=== PATIENT | female | born 1995 | race Caucasian/White ===

== ENCOUNTER 2017-08-02 14:03 | Emergency (ER) | payer OTHER ==
[2017-08-02 14:36] LABS: #Basophils 0.1 thou/uL (0.0-0.2); #Eosinphils 0.3 thou/uL (0.0-0.7); #Lymphocytes 3.2 thou/uL (1.20-3.40); #Monocytes 0.7 thou/uL (0.11-0.59); %Basophils 1.1 % (0.0-1.0); %Eosinophils 3.6 % (0.0-10.0); %Lymphocytes 38.7 % (28.0-48.0); %Monocytes 8.4 % (0.0-4.0); %Neutrophils 48.2 % (31.0-61.0); Hemoglobin 13.9 g/dL (12.0-16.0); Mean Corpuscular HGB CONC 32.5 g/dL (32.0-36.0); Mean Corpuscular Hemoglobin 29.3 pg (25.0-35.0); Mean Platelet Volume 8.3 fL (7.4-10.4); Platelet Count 197 thou/uL (130-400); RBC Distribution Width 12.7 % (11.5-14.5); Red Blood Cell (RBC) Count 4.73 mill/uL (4.00-5.20); White Blood Cell (WBC) Count 8.3 thou/uL (4.8-10.8)
[2017-08-02 15:00] LABS: ALT (SGPT) 35 U/L (8-55); AST (SGOT) 25 U/L (5-34); Albumin 4.2 g/dL (3.5-5.0); Alkaline Phosphatase 68 U/L (40-150); Anion Gap 9 mmol/L (10-20); BUN (Urea Nitrogen) 5 mg/dL (7.0-18.7); Bilirubin, Total 0.3 mg/dL (0.2-1.2); CK (CPK) 47 U/L (29-168); Calc. Creatinine Clearance 0 mL/min (70-130); Calcium 9.5 mg/dL (7.8-10.44); Carbon Dioxide 24 mmol/L (22-29); Chloride 109 mmol/L (98-107); Estimated GFR-MDRD Greater than 90; Globulin 2.4 g/dL (2.4-3.5); Glucose 97 mg/dL (70-105); Potassium 3.8 mmol/L (3.5-5.1); Protein, Total 6.6 g/dL (6.0-8.3); Sodium 138 mmol/L (136-145)
[2017-08-02 15:02] LABS: CKMB 0.3 ng/mL (0-6.6); Troponin I Less than 0.010 ng/mL (< 0.028)
--- NOTE | 2017-08-02 15:06 | RAD ---
PORTABLE CHEST: Date: 08/02/17 HISTORY: Chest pain. FINDINGS: Heart size and mediastinum are within normal limits. Lungs are clear of infiltrates. No signs of fail ure. No bony findings. IMPRESSION: No active intrathoracic disease. POS: [facility]
== END 2017-08-02 16:22 | disposition home or self-care (01) ==
LOC: ERS 14:03
DX: R07.89 Other chest pain (principal); J45.909 Unspecified asthma, uncomplicated; F32.9 Major depressive disorder, single episode, unspecified
CPT/HCPCS: 71045; 80053; 82553; 84484; 85025; 93005; 94760; 96360

== ENCOUNTER 2018-01-04 12:23 | Day surgery (SDC) | payer OTHER ==
[2018-01-03 13:22] VITALS: BMI 29.9
[2018-01-04] MEDS ORDERED: Lidocaine 1% w/Epinephrine 1:100K 30 ML VIAL ONE (13:06)
--- NOTE | 2018-01-04 14:06 | OP ---
DATE OF PROCEDURE: 01/04/2018 SURGEON: Dr. John Parr PROCEDURE: LINQ recorder implantation. REFERRING: ____ REASON FOR PROCEDURE: Ms. Morgan is a 22-year-old woman with history of morbid obesity who is supp osed to get sleeve surgery. She has recurrent syncopal spells. She is here for a LINQ recording ins ertion. PROCEDURE: The prepectoral area was prepped, draped and anesthetized with subcutaneous lidocaine. T he standard length insertion tool kit, subcutaneous module was inserted without difficulty. The dylan ent tolerated the procedure well with mild dizziness and lower heart rate and blood pressure post-imp lantation in nature and resolved. CONCLUSION: Successful LINQ recording implant. PLAN: Routine monitoring.
== END 2018-01-04 14:16 | disposition home or self-care (01) ==
LOC: CCL 12:23
PROVIDERS: ATTEND Internal Medicine Cardiovascular Disease
PROC: 0JH632Z Insertion of Monitoring Device into Chest Subcutaneous Tissue and Fascia, Percutaneous Approach (ICD-10-PCS; principal; 2018-01-04)
DX: R55 Syncope and collapse (principal); Z88.8 Allergy status to other drugs, medicaments and biological substances
CPT/HCPCS: 33282; C1764; J2001

== ENCOUNTER 2018-02-28 07:42 | Inpatient (IN) | payer OTHER ==
[2018-02-28] MEDS ORDERED: Lidocaine 1% (PF) 30 ML VIAL ONE (08:11)
[2018-02-28] MEDS ORDERED: Lorazepam 2 MG/ML VIAL ONE (08:11)
[2018-02-28 10:37] LABS: CSF, Glucose 57 mg/dl (40-70); CSF, Protein 26 mg/dL (15-40)
[2018-02-28 10:51] LABS: Color Of CSF Supernatant COLORLESS (Colorless); Tube # 2; Unspun CSF Color COLORLESS (Colorless)
[2018-02-28 10:52] LABS: CSF Source CSF; Tube # 1
[2018-02-28 11:11] LABS: Clarity Clear (Clear); WBC/NonHematics Count - Manual 1 /cumm (0-5)
[2018-02-28 11:12] LABS: CSF Source CSF; Clarity Clear (Clear); RBC Count - Manual 0 /cumm (None Seen); RBC Count - Manual 155 /cumm (None Seen); Tube # 4; WBC/NonHematics Count - Manual 0 /cumm (0-5)
[2018-02-28] MEDS ORDERED: cefTRIAXone\\ROCEPHIN 2 GM VIAL ONE (11:39)
[2018-02-28] MEDS ORDERED: Sodium Chloride 0.9% 100 ML ONE (11:39)
[2018-02-28] MEDS ORDERED: Ketorolac Tromethamine 30 MG/ML VIAL ONE (11:47)
[2018-02-28 12:27] LABS: ALT (SGPT) 42 U/L (8-55); AST (SGOT) 65 U/L (5-34); Albumin 3.5 g/dL (3.5-5.0); Alkaline Phosphatase 94 U/L (40-150); Anion Gap 12 mmol/L (10-20); BUN (Urea Nitrogen) 12 mg/dL (7.0-18.7); Bilirubin, Total 0.4 mg/dL (0.2-1.2); Calc. Creatinine Clearance 0 mL/min (70-130); Calcium 8.4 mg/dL (7.8-10.44); Carbon Dioxide 21 mmol/L (22-29); Chloride 108 mmol/L (98-107); Estimated GFR-MDRD Greater than 90; Globulin 2.5 g/dL (2.4-3.5); Glucose 74 mg/dL (70-105); Potassium 3.9 mmol/L (3.5-5.1); Sodium 137 mmol/L (136-145)
[2018-02-28 13:12] LABS: Band 19 % (5-11); Hemoglobin 12.2 g/dL (12.0-16.0); Lymphocytes 25 % (21-51); MDiff Complete? YES; Mean Corpuscular HGB CONC 32.7 g/dL (32.0-36.0); Mean Corpuscular Hemoglobin 29.5 pg (27.0-31.0); Mean Corpuscular Volume 90.4 fL (78.0-98.0); Mean Platelet Volume 7.6 fL (7.4-10.4); Monocytes 10 % (0-10); Neutrophil 30 % (42-75); PLT Morphology Comment Appears Decreased; Platelet Count 111 thou/uL (130-400); RBC Distribution Width 11.7 % (11.5-14.5); RBC Morphology Normal; Reactive Lymphocytes 15 % (0-10); Red Blood Cell (RBC) Count 4.13 mill/uL (4.20-5.40); Small Platelets SLIGHT
[2018-02-28] MEDS ORDERED: Ondansetron PF 4 MG/2 ML Vial ONE ×2 (13:38→13:44)
[2018-02-28] MEDS ORDERED: diphenhydrAMINE 50 MG/ML VIAL ONE (14:08)
[2018-02-28] MEDS ORDERED: Acetaminophen 325 MG TAB PO PRN (15:16)
[2018-02-28] MEDS ORDERED: Ondansetron ODT 4 MG TAB SL PRN (15:16)
[2018-02-28] MEDS ORDERED: Ondansetron PF 4 MG/2 ML Vial IVP PRN (15:16)
[2018-02-28] MEDS ORDERED: PROVENTIL INHALER 6.7 G (200 INHALATIONS) INH PRN (16:13)
[2018-02-28] MEDS: Sodium Chloride 0.9% 1,000 ML IV SCH (17:17)
[2018-02-28] MEDS ORDERED: traMADol HCl 50 MG TAB PO PRN (19:45)
[2018-02-28] MEDS ORDERED: Ondansetron ODT 4 MG TAB PO PRN (19:45)
--- NOTE | 2018-02-28 19:50 | HP ---
DATE OF ADMISSION: 02/28/2018 PRIMARY CARE PHYSICIAN: Faye Bartlett M.D. CHIEF COMPLAINT: Syncope, possible seizure, possible fever of unknown origin. HISTORY OF PRESENT ILLNESS: Ms. Morgan is a pleasant 23-year-old female who had arrived to [facility] ER via EMS, she was transferred from [facility] for a syncopal episode and fever of unknown origin. She had one reading of a temperature of 102 early this morning around 5:[address] was given oral Tylenol and transported to [facility]. Upon admission, she h ad denied chest pain, shortness of breath or abdominal pain. She had some mild complaints of neck pa in; however, CT of the head and neck was unremarkable. She had undergone lumbar puncture which so fa r is unremarkable. Blood cultures were obtained and she was given single dose of IV vancomycin and c eftriaxone, which she tolerated well. In the ED, vital signs remained stable with maximum temperatur e being 98.3. She had a history of asthma, being worked up for postural orthostatic tachycardia synd goodrich and ruled out seizure activity since 09/2017. She had seen Dr. Kaur in the past and funmi connelly a thorough workup in the past which was found to be unremarkable for seizure. She currently has a loop recorder in place. On current EKG, she was found to be tachycardic with rates in the 140s. She states at home yesterday, she had a syncopal episode in the shower, but did not think anything of it , she had then noticed fever and chills later that night along with shaking, she states was a seizure . Per mother during this shaking episode, the patient was able to talk with mother during this time. Currently, she had denied chest pain, shortness of breath or abdominal pain, no nausea, vomiting or no urinary symptoms. PAST MEDICAL HISTORY: History of asthma, possible POTS. PAST SURGICAL HISTORY: History of cholecystectomy, tonsillectomy, gastric sleeve, left ankle surgery and loop recorder placed in chest. PSYCHIATRIC HISTORY: Positive for depression. SOCIAL HISTORY: Patient denies alcohol use, drug use or smoking. ALLERGIES: 1. LEXAPRO. 2. PECAN NUT. 3. ADHESIVE. CURRENT MEDICATIONS: 1. Metoprolol 75 mg twice daily. 2. Effexor 150 mg oral once daily. 3. Albuterol 90 mcg 1 puff every 4 hours as needed for wheezing. 4. Clonazepam 0.5 mg twice daily. 5. Necon /10/23 0.5 mg/35 mcg/0.75 mg daily. REVIEW OF SYSTEMS: Constitutional: Reports fever and chills early this morning, none at the moment, alert and oriented x3, no acute distress noted. Eyes: Denies eye redness or change in vision. No blurred vision. ENT: Denies sore throat or nosebleed or discharge. Cardiovascular: Denies chest p ain, palpitations. Respiratory: Denies cough, shortness of breath or wheezing. Gastrointestinal: Denies nausea, vomiting, or diarrhea. No abdominal pain. Musculoskeletal: Reports mild neck pain, 2/10 pain, denies stiffness. Neurologic: Reports headache, syncope and possible seizures. Psychiat richard: Positive for depression. No suicidal or homicidal ideation. PHYSICAL EXAMINATION: VITAL SIGNS: BP 108/58, pulse 85, respirations 18, temperature 98.2 degrees Fahrenheit, O2 saturatio n 100% on room air. GENERAL: This is a pleasant 23-year-old female who is alert and oriented x3. HEENT: Pupils are equal, round, reactive to light and accommodation. Extraocular muscles intact. H ead is normocephalic. Moist mucous membranes. NECK: Supple, no cervical lymphadenopathy noted. No bruits, no JVD. Full range of motion. CARDIAC: Positive S1, S2, without murmur or rub, and currently sinus rhythm on the monitor. ABDOMEN: Soft, nontender, nondistended. Bowel sounds positive x4. EXTREMITIES: Strength 5+ both upper and lower extremities bilaterally. Pulses are equal bilaterally 2+. Sensation intact. No pedal edema noted. NEUROLOGIC: Cranial nerves II-XII grossly intact. No focal deficits noted. PSYCHIATRIC: Flat affect noted. PERTINENT LABORATORY FINDINGS: WBC 7.5, RBC 4.34, hemoglobin 12.8, platelets 181. Sodium 136, potas sium 3.8, creatinine 0.79, GFR 83, AST 65, ALT 42, alkaline phosphatase 94. Lumbar puncture showed 1 55 RBC, otherwise unremarkable. CT head and neck unremarkable and shows no acute abnormalities. ASSESSMENT AND PLAN: This is a pleasant 23-year-old female. 1. Syncope, patient with history of possible POTS, we will monitor her symptoms closely, and continu e with telemetry monitoring with further concern of serotonin syndrome. We will hold home dose of Ef fexor, but we will continue all other home medications at this time. Neurology services, Dr. Kaur were consulted; however, no further workup needed as the patient did undergo recent extensive workup and was found to be negative for seizures. 2. Fever of unknown origin, we will wait for blood culture results, LP unremarkable, patient is curr ently asymptomatic at this time, white count is normal and afebrile. Currently, no further need of a ntibiotics at this time. We will start the patient on IV fluids and hold home dose of Effexor for po ssible serotonin syndrome. We will monitor closely overnight and we will reassess in the morning. 3. History of depression, we will hold patient's home dose of Effexor as above, continue home dose o f Klonopin 0.5 mg twice daily p.r.n. anxiety. 4. GI prophylaxis with Pepcid 20 mg p.o. twice daily. 5. Deep venous thrombosis prophylaxis with Lovenox. DISPOSITION: Pending patient progress and workup.
[2018-02-28] MEDS: Ibuprofen 200 MG TAB PO PRN (20:11)
[2018-02-28] MEDS: Metoprolol Tartrate 50 MG TAB PO SCH (20:12)
[2018-02-28] MEDS: Famotidine 20 MG TAB PO SCH (20:12)
--- NOTE | 2018-02-28 20:12 | RAD ---
AP VIEW CHEST: 02/28/2018 HISTORY: Fever. FINDINGS: AP view chest demonstrates the lungs to be well aerated. No evidence of active intrathoracic disease is seen. No evidence of effusions, pneumonia, or pneumothorax is seen. IMPRESSION: Unremarkable anterior-posterior view chest. POS: [facility]
[2018-02-28] MEDS ORDERED: HYDROcodone/Acetaminophen 5/325 mg Tablet PO PRN (21:22)
[2018-02-28 21:47] LABS: Bilirubin Small (Negative); Blood, Urine Negative (Negative); Clarity CLEAR (Clear); Glucose, Urine (Dipstick) Negative (Negative); Leukocyte Negative (Negative); Nitrite Negative (Negative); Protein, Urine (Dipstick) 30 mg/dL (Neg-Trace); Specific Gravity, Urine 1.033 (1.002-1.036); Urobilinogen > or = 8.0 mg/dL (0.2-1.0)
[2018-02-28 21:49] LABS: Bacteria/HPF None Seen HPF (None Seen); Hyaline Casts/LPF 4-6 HYALINE CAST LPF (0-3 Hyaline); Pathc Cast-AUWi Flag 0.87 (0-2.49)
[2018-02-28 21:55] LABS: Amphetamine Not Detected (NotDetected); Barbiturates Screen Not Detected (NotDetected); Benzodiazepine Screen Detected (NotDetected); Cocaine Metabolite Screen Not Detected (NotDetected); Medtox Control Line Valid? VALID (VALID); Medtox Reader # READER 1; Methadone Not Detected (NotDetected); Methamphetamine Not Detected (NotDetected); Opiate Screen Not Detected (NotDetected); Oxycodone Screen Not Detected (NotDetected); Phencyclidine (PCP) Not Detected (NotDetected); THC/Cannabinoid Screen Not Detected (NotDetected); Tricyclic Screen Not Detected (NotDetected)
[2018-03-01 04:23] LABS: Anion Gap 14 mmol/L (10-20); BUN (Urea Nitrogen) 9 mg/dL (7.0-18.7); Calc. Creatinine Clearance 195 mL/min (70-130); Calcium 8.4 mg/dL (7.8-10.44); Carbon Dioxide 18 mmol/L (22-29); Chloride 109 mmol/L (98-107); Estimated GFR-MDRD Greater than 90; Glucose 80 mg/dL (70-105); Potassium 4.3 mmol/L (3.5-5.1); Sodium 137 mmol/L (136-145)
[2018-03-01] MEDS: Acetaminophen 325 MG TAB PO PRN ×2 (04:50→21:25)
[2018-03-01 05:10] LABS: Band 21 % (5-11); Eosinophils 1 % (0-10); Hemoglobin 13.4 g/dL (12.0-16.0); Lymphocytes 42 % (21-51); MDiff Complete? YES; Mean Corpuscular HGB CONC 33.2 g/dL (32.0-36.0); Mean Corpuscular Hemoglobin 29.9 pg (27.0-31.0); Mean Corpuscular Volume 90.3 fL (78.0-98.0); Mean Platelet Volume 7.9 fL (7.4-10.4); Monocytes 15 % (0-10); Neutrophil 21 % (42-75); PLT Morphology Comment Appears Decreased; Platelet Count 76 thou/uL (130-400); RBC Distribution Width 11.8 % (11.5-14.5); Red Blood Cell (RBC) Count 4.49 mill/uL (4.20-5.40); White Blood Cell (WBC) Count 4.6 thou/uL (4.8-10.8)
[2018-03-01] MEDS: Sodium Chloride 0.9% 1,000 ML IV SCH ×2 (05:52→16:18)
[2018-03-01] MEDS: Enoxaparin Sodium 40 MG/0.4 ML SYRINGE SC SCH (09:00)
[2018-03-01] MEDS: Metoprolol Tartrate 50 MG TAB PO SCH ×2 (09:01→21:23)
[2018-03-01] MEDS: Famotidine 20 MG TAB PO SCH ×2 (09:01→21:25)
[2018-03-01] MEDS ORDERED: ISOVUE-370 76%-LOCM 1 ML ONE (13:26)
[2018-03-01] MEDS: clonazePAM 0.5 MG TAB PO PRN (16:18)
--- NOTE | 2018-03-01 16:24 | PDOC.PN ---
- Subjective Encounter Start Date: 03/01/18 Encounter Start Time: 09:00 Patient lying in bed, she reports feeling a little better, but she is having intermittent spikes in fever. She denies chest pain, shortness of breath or abdominal pain. No nausea or vomiting. Patient admits to having a cough with some sore throat last week and reports some mild pleuritic pain when she takes a deep breath. - Objective Resuscitation Status: Resuscitation Status FULL:Full Resuscitation MAR Reviewed: Yes Vital Signs & Weight: Vital Signs (12 hours) Temp Pulse Resp BP BP Pulse Ox 03/01/18 15:37 99.4 F 94 18 111/69 97 03/01/18 11:31 98.3 F 65 16 108/70 94 L 03/01/18 09:04 108/64 03/01/18 07:45 98.2 F 77 16 98/64 97 03/01/18 05:52 99.2 F 03/01/18 04:50 102.6 F H 105 H 20 126/75 97 Weight Weight 171 lb I&O: 02/28/18 03/01/18 03/02/18 06:59 06:59 06:59 Intake Total 1752 Output Total 300 Balance 1452 Result Diagrams: 03/01/18 03:25 03/01/18 03:25 Radiology Reviewed by me: Yes Phys Exam - Physical Examination Constitutional: NAD HEENT: PERRLA, moist MMs, sclera anicteric, oral pharynx no lesions Neck: no nodes, no JVD, supple Respiratory: no wheezing, no rales, no rhonchi, clear to auscultation bilateral Cardiovascular: RRR, no significant murmur, no rub Gastrointestinal: soft, non-tender, no distention, positive bowel sounds Musculoskeletal: no edema, pulses present Neurological: non-focal, normal sensation, moves all 4 limbs Lymphatic: no nodes Psychiatric: normal affect, A&O x 3 Skin: no rash, normal turgor, cap refill <2 seconds Dx/Plan (1) Fever Code(s): R50.9 - FEVER, UNSPECIFIED Status: Acute (2) Syncope Code(s): R55 - SYNCOPE AND COLLAPSE Status: Acute - Plan cont current plan of care * Continue close monitoring of vitals and labwork. * Check Echo, ESR and CRP * Consult placed for infectious disease Dr Daly for further evaluation
[2018-03-01 16:53] LABS: Pregnancy Test - Urine (BHCG) Negative (Negative); Pregu Control Background? CLEAR/WHITE (CLR/WHITE); Pregu Control Bar Appear? YES (CONTROL BAR); Specific Gravity 1.033 (1.002-1.036)
[2018-03-01] MEDS: MEROPENEM 1 GM/50 ML 1 GM in Premix Bag 1 BAG IVPB SCH (17:29)
[2018-03-01] MEDS: Vancomycin HCl 1.5 GM in Sodium Chloride 0.9% 250 ML 300 ML IVPB SCH (18:07)
[2018-03-01] MEDS ORDERED: Vancomycin HCl 1.25 GM in Sodium Chloride 0.9% 250 ML 250 ML IVPB SCH (21:00)
--- NOTE | 2018-03-01 22:01 | CT ---
CONTRAST ENHANCED CT IMAGES ABDOMEN AND PELVIS: 03/01/18 HISTORY: Abdominal pain. Patient with prior gastric sleeve. Contrast enhanced CT images of the abdomen and pelvis demonstrates the lung bases to be unremarkable . No evidence of free intraperitoneal air seen. The liver and spleen are unremarkable. The gallbladder has been surgically removed. The pancreas is u nremarkable. Adrenal glands and kidneys are unremarkable. No evidence of hydroureteronephrosis seen. No evidence of abscess or fluid collection seen in the left upper quadrant of the abdomen. Gastric st aples are visualized. No dilated loops of small bowel seen. Mildly enlarged mesenteric lymph nodes are present. No evidence of periaortic lymphadenopathy is seen. A moderate amount of stool is seen in the colon. The appendix definitively is not visualized. Small pocket of gas is seen in the right anterior abdominal wall subcutaneous fat. Is this from a rec ent subcutaneous injection? IMPRESSION: Unremarkable postoperative changes with no acute intra-abdominal or pelvic abnormality seen. POS: [facility]
[2018-03-01] MEDS: diphenhydrAMINE 50 MG/ML VIAL IVP PRN (22:14)
[2018-03-02] MEDS: MEROPENEM 1 GM/50 ML 1 GM in Premix Bag 1 BAG IVPB SCH ×3 (01:27→17:21)
[2018-03-02] MEDS: Vancomycin HCl 1.5 GM in Sodium Chloride 0.9% 250 ML 300 ML IVPB SCH ×3 (02:46→19:46)
[2018-03-02 06:01] VITALS: BMI 30.9
[2018-03-02] MEDS: Famotidine 20 MG TAB PO SCH ×2 (08:00→21:04)
[2018-03-02] MEDS: Acetaminophen 325 MG TAB PO PRN ×3 (08:01→23:43)
[2018-03-02] MEDS: Metoprolol Tartrate 50 MG TAB PO SCH ×2 (08:01→21:04)
[2018-03-02] MEDS: Sodium Chloride 0.9% 1,000 ML IV SCH ×2 (08:04→23:55)
[2018-03-02] MEDS: Enoxaparin Sodium 40 MG/0.4 ML SYRINGE SC SCH (08:04)
[2018-03-02] MEDS: diphenhydrAMINE 50 MG/ML VIAL IVP PRN (09:38)
--- NOTE | 2018-03-02 09:48 | CON ---
DATE OF CONSULTATION: 03/02/2018 REASON: Fever. HISTORY OF PRESENT ILLNESS: This is a 23-year-old, who has a history of asthma and had a recent gastric sleeve procedure done in the [facility], and about 6 months before. The patient had been following a diet of frequent meals , 6 times a day approximately, with a high-protein content. She also had been taking multivitamins up until 2 months ago and then she stopped it. Apparently , has had some issues with syncopal events and was being evaluated for postural hypotension and other forms of arrhythmia by consumer sales representative and legal secretary receptionist with an implantable loop recorder that was placed recently. She was seen in Neurology as well for this postural tachycardia syndrome and seizure activity has been ruled out. She was brought in because of what initially was felt to be uncontrolled shaking, probably chills because it was closely associated with increase in temperature subsequently. The mother was afraid that she was having seizures, but actually she never lost her consciousness during the event. The patient was brought to the hospital after the temperature went up and the initial findings included a BP of 108/58, pulse 85, respirations 18, temperature 98.2. She was alert and oriented. The abdomen was described as nontender. Lungs were clear. Heart exam was normal. Initial laboratory findings included a white cell count of 5.0, hemoglobin 12, platelets 111 with 30% neutrophils, 19% bands, 25% lymphocytes, 15% reactive lymphocytes. Chemistry findings included sodium 137, creatinine 0.61, AST 65. Other liver panel values normal. CRP was 4.86. Urinalysis with 7-10 wbc's, 30 protein, 4-6 rbc's, and some hyaline casts. test negative. CSF was done and there was 0 wbc's, 0 rbc's, and protein and glucose normal. Toxicology detected benzodiazepines, but no other drugs. Patient had a chest x- ray with negative findings. She had an abdomen and pelvis CT with a small pocket of gas in the right anterior abdominal wall subcutaneous fat. Following that, the findings were not particularly remarkable. The gastric bhavana are visualized. Currently, patient was feeling unwell while she was diaphoretic. Denied any headaches, no shortness of breath. No back pain. No genitourinary symptoms. No joint symptoms or skin disorder. During the exam, she had tenderness in the right lower quadrant on percussion. PAST MEDICAL HISTORY: Obesity, recent sleeve gastrectomy done in [place] in [facility], asthma, and then these recurrent episodes of postural hypotension with tachycardia. PAST SURGICAL HISTORY: Cholecystectomy, tonsillectomy, gastric sleeve, ankle surgery, recently placed loop recorder, and history of depression. SOCIAL HISTORY: Never a smoker, no alcoholic beverage use. ALLERGIES: LEXAPRO, PECAN NUT, AND ADHESIVE. MEDICATIONS: Had been on metoprolol, Effexor, albuterol, clonazepam, Necon. MEDICATION LIST IN THE HOSPITAL: Tylenol, [place], Proventil, Klonopin, Benadryl , Lovenox, Pepcid, Motrin, meropeneum, vancomycin, and ondansetron. PHYSICAL EXAMINATION: VITAL SIGNS: T-max 102.6, she is now 97.7, blood pressure is 111/75, pulse 80, respirations 18, O2 sat 96%. SKIN EXAM: Normal, peripheral IV access. She is voiding spontaneously. LYMPH: No lymphadenopathy. HEENT: Ocular movements are conjugate. Oral cavity moist. Teeth in good shape. NECK: Supple, no jugular vein distention. LUNGS: With symmetric clear breath sounds. CARDIOVASCULAR: S1 and S2 without murmurs. No S3 or S4. ABDOMEN: With slight tenderness or moderate tenderness on percussion of the left lower quadrant. EXTREMITIES: No joint inflammatory activity. NEUROLOGIC EXAMINATION: Nonfocal, normal cognitive function. MOST RECENT LABORATORY DATA: White cell count 4.6, hemoglobin 13, platelets 76, 000 with 21% neutrophils, 21% bands, 15% monocytes. Microbiology thus far, 2 sets of blood cultures no growth and urine culture no growth. Influenza nasal swab is negative. ASSESSMENT: 1. History of recent sleeve gastrectomy in [place]. 2. Possible hypotension, tachycardia syndrome. 3. Recently implanted loop recorder. 4. Fever with bandemia. 5. Thrombocytopenia. DISCUSSION: Differential diagnosis includes bacteremia from not yet clear source, possibility of an intraabdominal inflammatory process is not yet completely ruled out, in view of the patient's tenderness during the examination. The appendix was not visualized in the CT scan. I do not think there is a history of appendectomy in the past, so appendicitis is still a concern. There is no apparent leak in the gastric sleeve area. We will have to reassess depending on clinical progress since those leaks sometimes are not easy to identify. Viral infection is less likely, autoimmune processes will have to be considered depending on clinical progress. Continue broad-spectrum coverage, may consider adding doxycycline for possibility of an intracellular bacteria such as Rickettsia, Ehrlichia. Micronutrient deficiency associated with gastric procedures less likely. MTDD
[2018-03-02 17:26] LABS: Vancomycin, Trough 36.6 ug/mL
--- NOTE | 2018-03-02 18:48 | PDOC.PN ---
- Subjective Encounter Start Date: 03/02/18 Encounter Start Time: 11:00 Patient lying in bed, no complaints at this time. She denies chest pain, shortness of breath. Denies fever or chills. Fevers better today with Tmax 100.2. Dr Daly continuing with IV antibiotics at this time. - Objective Resuscitation Status: Resuscitation Status FULL:Full Resuscitation MAR Reviewed: Yes Vital Signs & Weight: Vital Signs (12 hours) Temp Pulse Resp BP Pulse Ox 03/02/18 11:21 97.9 F 67 16 100/68 97 03/02/18 09:00 98.3 F 03/02/18 07:45 100.2 F H 96 20 116/71 96 Weight Weight 175 lb I&O: 03/01/18 03/02/18 03/03/18 06:59 06:59 06:59 Intake Total 1752 3280 675 Output Total 300 1700 450 Balance 1452 1580 225 Result Diagrams: 03/01/18 03:25 03/01/18 03:25 Radiology Reviewed by me: Yes Phys Exam - Physical Examination Constitutional: NAD HEENT: PERRLA, moist MMs, sclera anicteric, oral pharynx no lesions, 2+ tonsils Neck: no nodes, no JVD, supple Respiratory: no wheezing, no rales, no rhonchi, clear to auscultation bilateral Cardiovascular: RRR, no significant murmur, no rub Gastrointestinal: soft, non-tender, no distention, positive bowel sounds Musculoskeletal: no edema, pulses present Neurological: non-focal, normal sensation, moves all 4 limbs Lymphatic: no nodes Psychiatric: normal affect, A&O x 3 Skin: no rash, normal turgor, cap refill <2 seconds Dx/Plan (1) Fever Code(s): R50.9 - FEVER, UNSPECIFIED Status: Acute (2) Syncope Code(s): R55 - SYNCOPE AND COLLAPSE Status: Acute - Plan cont current plan of care, plan discussed w/ family, continue antibiotics, DVT proph w/lovenox, DVT proph w/SCDs * Continue IV antibiotics per Dr Daly * Fever improving, continue to monitor vital signs * Await echo results * Pending patient progress and results of echo, may likely discharge pending Dr Daly recommendations
[2018-03-02 19:20] LABS: Vancomycin, Trough 26.3 ug/mL
--- NOTE | 2018-03-02 19:56 | PDOC.EVN ---
Event Note - Event Note Event Note: Notified by nursing that the patient had experienced acute neuro changes. Dianelys' emy patient with her mother at the bedside. She reports the patient had reported a frontonasal headache and subsequently had her eyes cross and roll back. She has subsequently had drooping eyelids and not focusing. She is answering questions and moves her extermities and follows commands. T is 100.7. She has new area of erythema on her shoulders. She has no nuchal rigidity and no pain with ROM of the neck. Pupil are normally responsive. Mother reports she had a seizure on Wednesday. Was not loaded with meds as it was likely febrile in nature. The patient was previously diagnosed with Pott's disease. She was eval 'd by Dr. Kaur and had and EEG that was negative prior to this illness. I confirmed she has had CT of head and neck. She also had LP with negative results and negative cultures at 48 hours. She has just received Tylenol. No new recs at this time other than close observation. Patient's mother (a nurse practioner herself) is amenable to that plan. The new rash is not "ileana" syndrome and the vanc can be continued.
[2018-03-03] MEDS: MEROPENEM 1 GM/50 ML 1 GM in Premix Bag 1 BAG IVPB SCH ×3 (01:08→17:55)
[2018-03-03] MEDS ORDERED: Vancomycin HCl 1.5 GM in Sodium Chloride 0.9% 250 ML 300 ML IVPB SCH (06:00)
[2018-03-03 06:32] LABS: Vancomycin, Trough 5.2 ug/mL
[2018-03-03] MEDS: Acetaminophen 325 MG TAB PO PRN ×2 (06:42→18:33)
[2018-03-03] MEDS: Metoprolol Tartrate 50 MG TAB PO SCH ×2 (08:37→20:45)
[2018-03-03] MEDS: Famotidine 20 MG TAB PO SCH ×2 (08:37→20:45)
[2018-03-03] MEDS: clonazePAM 0.5 MG TAB PO PRN ×2 (09:46→20:45)
[2018-03-03] MEDS: Enoxaparin Sodium 40 MG/0.4 ML SYRINGE SC SCH (09:47)
[2018-03-03] MEDS ORDERED: Vancomycin HCl 1 GM in Premix Bag 1 BAG IVPB SCH (10:00)
[2018-03-03 11:49] LABS: Anion Gap 12 mmol/L (10-20); BUN (Urea Nitrogen) 6 mg/dL (7.0-18.7); Calc. Creatinine Clearance 192 mL/min (70-130); Calcium 8.3 mg/dL (7.8-10.44); Carbon Dioxide 23 mmol/L (22-29); Chloride 105 mmol/L (98-107); Estimated GFR-MDRD Greater than 90; Glucose 75 mg/dL (70-105); Sodium 136 mmol/L (136-145)
[2018-03-03 12:08] LABS: Band 9 % (5-11); Eosinophils 2 % (0-10); Lymphocytes 65 % (21-51); MDiff Complete? YES; Mean Corpuscular HGB CONC 33.9 g/dL (32.0-36.0); Mean Corpuscular Hemoglobin 29.9 pg (27.0-31.0); Monocytes 6 % (0-10); Neutrophil 7 % (42-75); PLT Morphology Comment Appears Decreased; Platelet Count 84 thou/uL (130-400); RBC Distribution Width 11.8 % (11.5-14.5); RBC Morphology Normal; Reactive Lymphocytes 11 % (0-10); White Blood Cell (WBC) Count 7.3 thou/uL (4.8-10.8)
[2018-03-03] MEDS: Ondansetron PF 4 MG/2 ML Vial SLOW IVP PRN (14:13)
[2018-03-03] MEDS ORDERED: Venlafaxine HCl XR 150 MG CAP PO SCH (15:00)
[2018-03-03] MEDS: Sodium Chloride 0.9% 1,000 ML IV SCH (15:02)
[2018-03-03 15:45] LABS: ANA Symphony (Qualitative) Negative (Negative); dsDNA IgG Antibody 5.2 IU/mL (<10 Negative)
--- NOTE | 2018-03-03 16:19 | PDOC.PN ---
- Subjective Encounter Start Date: 03/03/18 Encounter Start Time: 12:00 Patient lying in bed with family at bedside. She reports nauseous today with no vomiting. She is feeling a little better today. She denies head ache, dizziness , fever or chills. No chest pain, shortness of breath. Echo unremarkable - Objective Resuscitation Status: Resuscitation Status FULL:Full Resuscitation MAR Reviewed: Yes Vital Signs & Weight: Vital Signs (12 hours) Temp Pulse Resp BP Pulse Ox 03/03/18 12:00 98.5 F 78 22 H 117/61 98 03/03/18 08:00 97.8 F 97 Weight Weight 175 lb I&O: 03/02/18 03/03/18 03/04/18 06:59 06:59 06:59 Intake Total 3280 835 Output Total 1700 1250 Balance 1580 -415 Result Diagrams: 03/03/18 11:20 03/03/18 11:20 Radiology Reviewed by me: Yes Phys Exam - Physical Examination Constitutional: NAD HEENT: PERRLA, moist MMs, sclera anicteric, oral pharynx no lesions Neck: no nodes, no JVD, supple Respiratory: no wheezing, no rales, no rhonchi, clear to auscultation bilateral Cardiovascular: RRR, no significant murmur, no rub Gastrointestinal: soft, non-tender, no distention, positive bowel sounds Musculoskeletal: no edema, pulses present Neurological: non-focal, normal sensation, moves all 4 limbs Lymphatic: no nodes Psychiatric: A&O x 3 Deviation from normal: Lethargic, tearful at times Skin: no rash, normal turgor, cap refill <2 seconds Dx/Plan (1) Fever Code(s): R50.9 - FEVER, UNSPECIFIED Status: Acute (2) Syncope Code(s): R55 - SYNCOPE AND COLLAPSE Status: Acute (3) POTS (postural orthostatic tachycardia syndrome) Code(s): R00.0 - TACHYCARDIA, UNSPECIFIED; I95.1 - ORTHOSTATIC HYPOTENSION Status: Acute (4) History of loop recorder Code(s): Z98.890 - OTHER SPECIFIED POSTPROCEDURAL STATES Status: Acute - Plan cont current plan of care, plan discussed w/ family, DVT proph w/SCDs * Monitor CBC and labs closely, pending morning labs with consider consult to heme/onc * Dr Daly following and working up for fever * Await results * Echo reviewed and discussed with patient * Further medical management pending patient progress * Restart effexor as not likely serotonin syndrome
[2018-03-04] MEDS: MEROPENEM 1 GM/50 ML 1 GM in Premix Bag 1 BAG IVPB SCH ×2 (01:53→08:57)
[2018-03-04] MEDS: Sodium Chloride 0.9% 1,000 ML IV SCH ×2 (01:56→17:18)
[2018-03-04] MEDS: clonazePAM 0.5 MG TAB PO PRN (04:40)
[2018-03-04] MEDS: Ibuprofen 200 MG TAB PO PRN ×2 (04:40→19:55)
[2018-03-04] MEDS: Ondansetron PF 4 MG/2 ML Vial SLOW IVP PRN (04:41)
[2018-03-04 05:36] LABS: ALT (SGPT) 77 U/L (8-55); AST (SGOT) 91 U/L (5-34); Albumin 3.1 g/dL (3.5-5.0); Alkaline Phosphatase 137 U/L (40-150); Anion Gap 11 mmol/L (10-20); BUN (Urea Nitrogen) 4 mg/dL (7.0-18.7); Bilirubin, Total 0.9 mg/dL (0.2-1.2); Calc. Creatinine Clearance 196 mL/min (70-130); Calcium 8.4 mg/dL (7.8-10.44); Carbon Dioxide 25 mmol/L (22-29); Chloride 104 mmol/L (98-107); Estimated GFR-MDRD Greater than 90; Globulin 2.4 g/dL (2.4-3.5); Glucose 75 mg/dL (70-105); Potassium 3.8 mmol/L (3.5-5.1); Protein, Total 5.5 g/dL (6.0-8.3); Sodium 136 mmol/L (136-145)
[2018-03-04 06:08] LABS: Band 2 % (5-11); Eosinophils 1 % (0-10); Hemoglobin 11.5 g/dL (12.0-16.0); Lymphocytes 56 % (21-51); MDiff Complete? YES; Mean Corpuscular HGB CONC 33.1 g/dL (32.0-36.0); Mean Corpuscular Hemoglobin 29.5 pg (27.0-31.0); Mean Corpuscular Volume 89.1 fL (78.0-98.0); Mean Platelet Volume 7.5 fL (7.4-10.4); Monocytes 5 % (0-10); Neutrophil 14 % (42-75); PLT Morphology Comment Appears Decreased; Platelet Count 120 thou/uL (130-400); RBC Distribution Width 11.7 % (11.5-14.5); Reactive Lymphocytes 22 % (0-10); Red Blood Cell (RBC) Count 3.91 mill/uL (4.20-5.40); White Blood Cell (WBC) Count 8.7 thou/uL (4.8-10.8)
[2018-03-04] MEDS: Famotidine 20 MG TAB PO SCH ×2 (08:57→21:30)
[2018-03-04] MEDS: Metoprolol Tartrate 50 MG TAB PO SCH ×2 (08:57→21:30)
[2018-03-04] MEDS: Enoxaparin Sodium 40 MG/0.4 ML SYRINGE SC SCH (08:57)
[2018-03-04] MEDS: Venlafaxine HCl XR 150 MG CAP PO SCH (08:57)
[2018-03-04 09:44] LABS: Vancomycin, Trough Less than 1.1 ug/mL
--- NOTE | 2018-03-04 09:55 | PRG ---
DATE OF SERVICE: 03/03/2018 SUBJECTIVE: Ms. Morgan has having a little bit of pain in the right lower quadrant. A little bit of headaches, no visual symptoms. No sore throat, no cough, chest pain or back pain. Voiding withou t difficulty. No joint symptoms. OBJECTIVE: VITAL SIGNS: T-max 100.7 on 03/02 and she has been afebrile since. Other vital signs are normal. O 2 sats 98%. GENERAL: Awake, alert, oriented, appears better than previously. She is not diaphoretic anymore. HEENT: Ocular movements conjugate. Pupils are equal. Oral cavity normal. NECK: Supple. LUNGS: Symmetric, clear breath sounds. HEART: S1, S2, regular rate. ABDOMEN: With mild tenderness in the right lower quadrant, no distention. Bowel sounds normal. No organomegaly. EXTREMITIES: Moves extremities equally. Joints do not appear inflamed. Pulses are normal. She is oriented, follows commands. LABORATORY DATA: White cell count 7.3, hemoglobin 12, platelets 84,000, 65% lymphocytes, 11% reactiv e lymphocytes, and the cultures are all negative thus far. ASSESSMENT AND DISCUSSION: Sleeve gastrectomy in [place] with possible hypotension, tachycardia syndr ome and recently implanted loop recorder, fever with bandemia and now with a right shift in the diffe rential with lymphocytosis and some atypical lymphocytes as well as thrombocytopenia. Again, the possibility of an intraabdominal inflammatory process is not completely ruled out, althoug h it is becoming less and less likely as the days go by. A viral infection including Maikel-Villanueva vi tank or cytomegalovirus is within the realm of possibilities and we will add serology for that. We wi ll also check for autoimmune syndrome with antinuclear antibody panel.
[2018-03-04 10:36] LABS: EBV Early Antigen (EA) IgG AB <9.0 U/mL (0.0-8.9); EBV VCA IgG <18.0 U/mL (0.0-17.9); EBV VCA IgM <36.0 U/mL (0.0-35.9); Nuclear AG IgG (EBNA) AB <18.0 U/mL (0.0-17.9)
--- NOTE | 2018-03-04 16:03 | PDOC.PN ---
- Subjective Encounter Start Date: 03/04/18 Encounter Start Time: 11:00 Patient lying in bed, she reports feeling better today. No events over night. Remains afebrile. Denies chest pain, shortness of breath. Dr Daly discontinued off antibiotics, but still working up for condition. - Objective Resuscitation Status: Resuscitation Status FULL:Full Resuscitation MAR Reviewed: Yes Vital Signs & Weight: Vital Signs (12 hours) Temp Pulse Resp BP Pulse Ox 03/04/18 11:28 98.4 F 58 L 14 100/66 99 03/04/18 09:00 97.5 F L 66 14 111/68 97 Weight Weight 175 lb I&O: 03/03/18 03/04/18 03/05/18 06:59 06:59 06:59 Intake Total 835 2400 Output Total 1250 1000 Balance -415 1400 Result Diagrams: 03/04/18 04:30 03/04/18 04:30 Radiology Reviewed by me: Yes Phys Exam - Physical Examination Constitutional: NAD HEENT: PERRLA, moist MMs, sclera anicteric, oral pharynx no lesions Neck: no nodes, no JVD, supple Respiratory: no wheezing, no rales, no rhonchi, clear to auscultation bilateral Cardiovascular: RRR, no significant murmur, no rub Gastrointestinal: soft, non-tender, no distention, positive bowel sounds Musculoskeletal: no edema, pulses present Neurological: non-focal, normal sensation, moves all 4 limbs Lymphatic: no nodes Psychiatric: normal affect, A&O x 3 Skin: no rash, normal turgor, cap refill <2 seconds Dx/Plan (1) Fever Code(s): R50.9 - FEVER, UNSPECIFIED Status: Acute (2) Syncope Code(s): R55 - SYNCOPE AND COLLAPSE Status: Acute (3) POTS (postural orthostatic tachycardia syndrome) Code(s): R00.0 - TACHYCARDIA, UNSPECIFIED; I95.1 - ORTHOSTATIC HYPOTENSION Status: Suspected (4) History of loop recorder Code(s): Z98.890 - OTHER SPECIFIED POSTPROCEDURAL STATES Status: Acute - Plan cont current plan of care, plan discussed w/ family, DVT proph w/SCDs * Antibiotics discontinued, she has been afebrile for 24 hours. * Dr Daly following, awaiting workup results * So far JENNIFER normal * Monitor CBC closely * Further management pending patient progress
--- NOTE | 2018-03-04 17:04 | EKG ---
Test Reason : Blood Pressure : / mmHG Vent. Rate : 083 BPM Atrial Rate : 083 BPM P-R Int : 120 ms QRS Dur : 082 ms QT Int : 386 ms P-R-T Axes : 010 038 003 degrees QTc Int : 453 ms Normal sinus rhythm Nonspecific T wave abnormality Abnormal ECG Confirmed by SOPHIA MORENO ([id number]), assistant editor MARY DINERO ([id number] on 03/04/2018 5:04:16 PM Referred By: Confirmed By:SOPHIA MORENO
[2018-03-05] MEDS: Metoprolol Tartrate 50 MG TAB PO SCH (08:21)
[2018-03-05] MEDS: Venlafaxine HCl XR 150 MG CAP PO SCH (08:21)
[2018-03-05] MEDS: Famotidine 20 MG TAB PO SCH (08:21)
[2018-03-05 08:29] VITALS: BP 116/80
[2018-03-05] MEDS: Enoxaparin Sodium 40 MG/0.4 ML SYRINGE SC SCH (09:59)
[2018-03-05 12:28] VITALS: TEMP 97.7
[2018-03-05] MEDS: Acetaminophen 325 MG TAB PO PRN (13:27)
--- NOTE | 2018-03-06 00:06 | DIS ---
DATE OF ADMISSION: 02/28/2018 DATE OF DISCHARGE: 03/05/2018 DISCHARGE DIAGNOSES: 1. Fever of unknown origin, resolved. 2. History of possible POTS, stable. 3. Syncope, likely related to #1 and #2, resolved. 4. History of depression, stable. CONSULTATIONS: Dr. Daly, Dr. Kaur. PERTINENT LABORATORY AND DIAGNOSTIC FINDINGS: WBC 8.7, RBC 3.91, hemoglobin 11.5, platelet 120. Sod ium 136, potassium 3.8. GFR greater than 90, creatinine 0.57, JENNIFER negative, EBV pending, CMV pending . Procalcitonin 0.11. ESR 15. Chest x-ray normal, no evidence of effusions, pneumonia, pneumothora x. Echocardiogram showed left ventricular EF of 55% to 60%. Lumbar puncture unremarkable. CT abdom en and pelvis showed unremarkable postoperative changes with no acute abnormalities. HOSPITAL COURSE: Ms. Morgan is a pleasant 23-year-old female who had presented to [facility] for syncope, she was transferred to the ER via EMS from [facility]. She had i ntermittent fevers for max temperature of 102 during hospital course. She was treated with Tylenol a nd Motrin as needed. She was admitted for further workup and observation of her symptoms. Dr. Ingrid connelly was consulted for further evaluation as mother reported possible seizure-like activity, which was l ikely secondary to patient's fevers. Dr. Kaur did a recent workup, which was very extensive, this was found to be unremarkable at that time. Dr. Kaur had determined no further workup needed at t his time and recommended symptomatic treatment. During hospital course, patient's fever continued. Blood cultures, urine cultures, and LP were negative. Dr. Daly was consulted for further evaluation , he had started patient on IV antibiotics including vancomycin and meropenem. She had undergone fur ther workup for cause of her symptoms; however, workup had been unremarkable. CT abdomen and pelvis showed postop changes from previous gastric sleeve surgery; however, unremarkable at that time. She had developed symptoms of shortness of breath, chest x-ray was obtained and found to be negative. Sh e underwent an echocardiogram, which was found to be normal with an EF of 55% to 60%. On admission, there was a concern for serotonin syndrome. Therefore, her home medication of Effexor was held; ellison todd, she had remained febrile. Serotonin syndrome was ruled out; therefore, she was placed back on h er home medications including Effexor during hospital course. Dr. Daly found that there was a possi bility for intra-abdominal inflammatory process; however, with a negative CT abdomen and pelvis, this was less likely. She had been checked for Maikel-Villanueva virus or cytomegalovirus due to this being a possibility. She had recently been worked up for POTS, tachycardia syndrome with recently implanted loop recorder. She had developed some symptoms of bradycardia throughout the hospital course; ther efore, her home dose of metoprolol 75 mg twice daily was decreased to 50 mg twice daily, she had resp onded well to this change and did not experience any further symptoms of bradycardia. Vital signs re mained stable. She has been afebrile for more than [address] Daly ruled out bacterial cause of her symptoms, therefore, was taken off IV antibiotics, Dr. Daly determine no further need of antibi otics at this time. Patient remained at baseline when she was seen and examined prior to discharge w ith family at bedside, she was instructed to continue her home medications including new dose of meto prolol 50 mg twice daily, serotonin syndrome was not likely; therefore, she can continue her home dos e of Effexor daily for her underlying depression. She was instructed to follow up with Dr. Daly in 2 weeks along with her primary grinder machine setter. She was also told to follow up with Dr. Kaur as outp atient. She had verbalized her understanding for discharge plan. She was deemed medically stable fo r discharge home on 03/05/2018. Pending results of CMV and Maikel-Villanueva virus, she will follow up [facility] Dr. Daly for these results as outpatient and possible management. DISCHARGE MEDICATIONS: 1. Metoprolol 50 mg twice daily. 2. Venlafaxine 150 mg oral daily. 3. Necon 0.5/ one tab oral daily. FOLLOWUP: The patient is instructed to follow up with Dr. Daly in 2 weeks, she is also to follow up with her PCP, [facility] in 1-2 weeks, she will also have followup with her primary grinder machine setter, Dr. Parr to her for followup for loop recorder, she will follow up with Dr. Kaur, she will call f or an appointment. CONDITION ON DISCHARGE: Stable. DIET: Regular diet. ACTIVITY: As tolerated. DISPOSITION: Home on 03/05/2018.
== END 2018-03-05 14:38 | disposition home or self-care (01) | DRG 864 ==
LOC: ERS 07:42 → 2SW 14:47 → OBSVTOIN 14:47 → 2SW 03-01 04:48 → OBSVTOIN 03-02 11:16 → INTOOBSV 03-02 11:16 → ONC 03-02 22:28
PROVIDERS: ADMIT Family Medicine; ATTEND Family Medicine
PROC: 009U3ZX Drainage of Spinal Canal, Percutaneous Approach, Diagnostic (ICD-10-PCS; principal; 2018-02-28)
DX: R50.9 Fever, unspecified (principal); R55 Syncope and collapse; J45.909 Unspecified asthma, uncomplicated; F32.9 Major depressive disorder, single episode, unspecified; Z88.8 Allergy status to other drugs, medicaments and biological substances; Z91.018 Allergy to other foods; Z79.899 Other long term (current) drug therapy; Z98.84 Bariatric surgery status
CPT/HCPCS: 36415; 62270; 71045; 74177; 80048; 80053; 80202; 80306; 81001; 81025; 82945; 83605; 84145; 84157; 84425; 85025; 85652; 86038; 86140; 86225; 86644; 86645; 86663; 86664; 86665; 87040; 87070; 87086; 87205; 87798; 87804; 89051; 93005; 93306; 96365; 96367; 96375; J0696; J1200; J1650; J1885; J2001; J2060; J2185; J2405; J3370; J7050; Q0162

== ENCOUNTER 2023-06-15 09:52 | Emergency (ER) | payer MEDICAID, OTHER ==
[2023-06-15] MEDS ORDERED: levETIRAcetam 500 MG TAB ONE (11:03)
[2023-06-15 11:14] LABS: #Basophils 0.1 thou/uL (0.0-0.2); #Eosinphils 0.1 thou/uL (0.0-0.7); #Monocytes 0.7 thou/uL (0.11-0.59); #Neutrophils 9.8 thou/uL (1.40-6.50); %Basophils 0.7 % (0.0-1.0); %Lymphocytes 10.2 % (21.0-51.0); %Monocytes 6.2 % (0.0-10.0); %Neutrophils 81.4 % (42.0-75.0); Mean Corpuscular HGB CONC 32.5 g/dL (32.0-36.0); Mean Corpuscular Hemoglobin 28.1 pg (27.0-31.0); Mean Corpuscular Volume 86.4 fl (78.0-98.0); Mean Platelet Volume 9.7 fL (7.4-10.4); Platelet Count 219 10x3/uL (130-400); RBC Distribution Width 14.3 % (11.5-14.5); Red Blood Cell (RBC) Count 4.63 mill/uL (4.20-5.40)
[2023-06-15 11:31] LABS: ALT (SGPT) 45 U/L (8-55); AST (SGOT) 63 U/L (5-34); Albumin 4.3 g/dL (3.5-5.0); Alkaline Phosphatase 63 U/L (40-110); Anion Gap 13 mmol/L (10-20); BUN (Urea Nitrogen) 9 mg/dL (7.0-18.7); Bilirubin, Total 0.5 mg/dL (0.2-1.2); Calc. Creatinine Clearance 0 mL/min (70-130); Calcium 9.1 mg/dL (7.8-10.44); Carbon Dioxide 21 mmol/L (22-29); Chloride 103 mmol/L (98-107); Estimated GFR 114; Globulin 2.7 g/dL (2.4-3.5); Glucose 104 mg/dL (70-105); Potassium 3.8 mmol/L (3.5-5.1); Sodium 133 mmol/L (136-145)
[2023-06-15 11:32] LABS: BHCG - Serum Negative (NEGATIVE); Pregs Control Background? CLEAR/WHITE (CLR/WHITE); Pregs Control Bar Appear? YES (CONTROL BAR)
[2023-06-15 11:34] LABS: CellaVision Operator ID LAB.KW3; Platelet Adequacy Comment Platelets Normal; RBC Morphology Within Normal Limits
[2023-06-15 12:01] LABS: Influenza A by NAA Not Detected (NotDetected); Influenza B by NAA Not Detected (NotDetected); SARS-CoV-2 NAA Rapid Test Not Detected (NotDetected)
== END 2023-06-15 12:15 | disposition home or self-care (01) ==
LOC: ERS 09:52
DX: J06.9 Acute upper respiratory infection, unspecified (principal); J45.909 Unspecified asthma, uncomplicated; G90.A Postural orthostatic tachycardia syndrome [POTS]; G40.89 Other seizures; Z55.6 Problems related to health literacy; Z79.899 Other long term (current) drug therapy
CPT/HCPCS: 36415; 80053; 84703; 85025; 93005

== ENCOUNTER 2023-07-09 20:59 | Emergency (ER) | payer OTHER | END 2023-07-09 22:55 | disposition home or self-care (01) | LOC: ERS 20:59 | DX: S96.912A Strain of unspecified muscle and tendon at ankle and foot level, left foot, initial encounter (principal); S93.402A Sprain of unspecified ligament of left ankle, initial encounter; J45.909 Unspecified asthma, uncomplicated; Z79.51 Long term (current) use of inhaled steroids; W19.XXXA Unspecified fall, initial encounter ==